=== PATIENT | male | born 1955 | race Caucasian/White ===

== ENCOUNTER 2017-04-01 05:49 | Inpatient (IN) | payer OTHER ==
--- NOTE | ~2017-04-01 | DS ---
Unit #: [id number] #: [id number] Patient: WILLIAM LYLE [id number] [address] [place], [place] [address] [id number] I MR#: [id number] NAME: WILLIAM LYLE ROOM: 460 Age: 61 Sex: M Admission Date: 04/01/2017 : 1955 Discharge Date: 04/02/2017 Attending Physician: Emerson Monterroso M.D. Primary Care Physician: Jose Perkins M.D. DISCHARGE SUMMARY ADMITTING DIAGNOSIS Right proximal humerus fracture. DISCHARGE DIAGNOSIS Right proximal humerus fracture status post right reverse shoulder arthroplasty. SECONDARY DIAGNOSIS Seasonal allergies. PROCEDURES PERFORMED On 04/01/2017 the patient underwent a right reverse shoulder arthroplasty for a right proximal humerus fracture. Please see operative report for further details. BRIEF HISTORY Mr. Lyle is a 61-year-old male who was referred to our office for a right proximal humerus fracture. He was seen in our office where we recommended an attempted ORIF versus hemiarthroplasty versus a reverse. The risks, benefits and alternatives were discussed with the patient, and he elected to proceed with surgery. HOSPITAL COURSE The patient was transferred to the orthopedic unit following surgery. Overnight he remained stable. On postop day number 1 the patient's vital signs remained stable. He was awake, alert and oriented x3 and in no acute distress. His incision was clean, dry and intact with no surrounding erythema, warmth or hematoma. He was neurovascularly intact in the median, ulnar and radial nerves. He had normal sensation to light touch in all 5 digits. His Hemovac drain had 70 mL of serosanguineous drainage out overnight. This was discontinued in the room today. His white blood cell count was 9.7, and his hemoglobin was 11.6. His pain is currently controlled with oxycodone. He is wearing SCDs for DVT prophylaxis. He worked with physical therapy this morning and was cleared to discharge home with the assistance of his family. He remained nonweightbearing of the right upper extremity an in his sling. CONDITION AT DISCHARGE Stable. DISPOSITION The patient will be discharged home where he has family to help with postoperative care. Unit #: [id number] #: [id number] Patient: WILLIAM LYLE DISCHARGE MEDICATIONS 1. Cetirizine 10 mg p.o. daily. 2. Multivitamin 1 tab p.o. daily. 3. Saw palmetto 500 mg p.o. daily. 4. Aspirin 81 mg p.o. daily. 5. Percocet 5/325 mg 1-2 tabs p.o. q.4 hours as needed for pain. The patient was given a refill for this in our office on 03/30/2017, to dispense 80 tablets. 6. Osteo Bi-Flex 1 capsule p.o. daily. 7. Omeprazole 20 mg p.o. daily. 8. Calcium and vitamin D3 tab 1 p.o. daily. DISCHARGE FOLLOWUP AND INSTRUCTIONS 1. The patient will follow up with Dr. Monterroso in 2 weeks' time. 2. He will remain nonweightbearing of the right upper extremity and in his sling. He may remove his sling 2 to 3 times per day to perform pendulums, as well as range of motion of the elbow, wrist and hand. 3. He will perform daily dressing changes to the right upper extremity. 4. He is not to get his incision wet. He may shower but must keep an occlusive dressing over the incision site when bathing. Dictated by... Glynn Ash APRN for Mayo Reese/jeremy TD: 04/04/2017 15:32 JOB #: [id number] DISCHARGE SUMMARY Page 1 of 1 X GLYNN ASH APRN X DISCHARGE SUMMARY
--- NOTE | ~2017-04-01 | CR230 ---
[facility] A Service of [facility] RADIOLOGY TEXT RESULTS PATIENT: WILLIAM LI LOCATION: B 460-01 : 59 UNIT #: [id number] AGE: [address]: Emerson Monterroso MD SEX: M ORDER DR: [id number] [id number] [facility]. [place], [place] [address] [id number] MR#: [id number] Acc #: [id number] NAME: WILLIAM LI : 1955 SEX: M STUDY DATE/TIME: 04/01/2017 08:17 UNIT: [facility] ROOM: [facility] STUDY DESCRIPTION: CR Shoulder Min 2 View Rt Attending Physician: Emerson Monterroso M.D. Ordering Physician: Emerson Monterroso M.D. Primary Care Physician: Jose Perkins M.D. MEDICAL IMAGING REPORT This report is preliminary unless electronic signature is present EXAM Right shoulder, intraoperative views; 04/01/2017, 0817 hours. CLINICAL HISTORY Shoulder fracture with shoulder replacement in progress. Fluoroscopy time 40 seconds. Five images obtained. COMPARISON 03/28/2017 FINDINGS Submitted for interpretation are 5 intraoperative views of the right shoulder obtained by Dr. Monterroso. Dose is not recorded on the images. The first 2 images demonstrated a comminuted displaced fracture of the proximal humerus with disruption of the articular surface. The glenoid appears normal. The third, fourth and fifth images demonstrate a total shoulder replacement with screwed ball component at the glenoid and cemented cup component at the humerus with a single proximal cerclage wire. The alignment is anatomic. IMPRESSION Five intraoperative views are obtained after 40 seconds of fluoroscopy time demonstrating right total shoulder replacement. Alignment is anatomic. Dictated by... Gege Sky M.D. THIS IS AN ELECTRONICALLY VERIFIED REPORT Gege Sky M.D. at 04/02/2017 9:34 AM DARWIN/jacquelyn [facility] A Service [facility] RADIOLOGY TEXT RESULTS PATIENT: WILLIAM LI LOCATION: C4 460-01 : 59 UNIT #: [id number] AGE: [address]: Emerson Monterroso MD SEX: M ORDER DR: TD: 04/01/2017 21:19 JOB #: [id number] MEDICAL IMAGING REPORT Page 1 of 1 COPY
--- NOTE | ~2017-04-01 | CR230 ---
[facility] A Service of [facility] RADIOLOGY TEXT RESULTS PATIENT: WILLIAM LI LOCATION: C4B 460-01 : 59 UNIT #: [id number] AGE: [address]: Emerson Monterroso MD SEX: M ORDER DR: [id number] [facility] [address]. [place], [place] [address] [id number] I MR#: [id number] Acc #: [id number] NAME: WILLIAM LI : 1955 SEX: M STUDY DATE/TIME: 04/01/2017 13:20 UNIT: [facility] ROOM: [facility] STUDY DESCRIPTION: CR Shoulder Min 2 View Rt Attending Physician: Emerson Monterroso M.D. Ordering Physician: Emerson Monterroso M.D. Primary Care Physician: Jose Perkins M.D. MEDICAL IMAGING REPORT This report is preliminary unless electronic signature is present EXAM Right shoulder 2 views, 04/01/2017 1320 hours HISTORY Shoulder pain, postop right total shoulder replacement. FINDINGS Grashey view and scapula Y-view demonstrate patient is postop total shoulder replacement with a screwed-ball component at the glenoid and a cemented cup component at the humerus. Alignment is anatomic. A surgical drain is present. IMPRESSION Two postop views confirm postop change of shoulder replacement with a screwed-ball component at the glenoid and a cemented component at the humerus. Alignment is anatomic. A surgical drain is present. Dictated by... Gege Sky M.D. THIS IS AN ELECTRONICALLY VERIFIED REPORT Gege Sky M.D. at 04/01/2017 9:03 PM DARWIN/shashank TD: 04/01/2017 20:28 JOB #: [id number] MEDICAL IMAGING REPORT Page 1 of 1 COPY
--- NOTE | ~2017-04-01 | OR ---
Unit #: [id number] #: [id number] Patient: WILLIAM LYLE [id number] [address] [place], [place] [address] [id number] I MR#: [id number] NAME: WILLIAM LYLE ROOM: [facility] Date of Procedure: 04/01/2017 Admission Date: 04/01/2017 Surgeon: Emerson Monterroso M.D. : 1955 Attending Physician: Emerson Monterroso M.D. Primary Care Physician: Jose Perkins M.D. OPERATIVE REPORT PREOPERATIVE DIAGNOSIS Right comminuted four-part proximal humerus fracture. POSTOPERATIVE DIAGNOSIS Right comminuted four-part proximal humerus fracture. PROCEDURE PERFORMED Right reverse shoulder arthroplasty. IMPLANTS 1. DJO Surgical size 8 AltiVate stem with a 32, neutral humeral socket liner. 2. DJO Surgical P2 baseplate with a 32, neutral glenosphere. 3. Synthes 1.0 mm cable x1. PUBLIC HEALTH DIRECTOR Yuniel Turcios, PGY-2. ANESTHESIA General with interscalene nerve block. ESTIMATED BLOOD LOSS 250 mL. COMPLICATIONS None apparent. DRAINS Medium Hemovac x1. INDICATIONS FOR PROCEDURE Mr. Lyle is a 61-year-old gentleman with a complex comminuted right proximal humerus fracture. This is a four-part fracture with at least a small amount of the articular segment involvement. We discussed attempted ORIF versus ishan versus reverse. We reviewed surgical options. At this point, we elected to proceed with surgical intervention as noted above. DESCRIPTION OF PROCEDURE The patient was identified in the preoperative holding area. The operative site was marked. Preoperative antibiotics were administered. A regional block was performed. The patient was brought to the operating room and placed supine on the operating table. A general anesthetic was Unit #: [id number] #: [id number] Patient: WILLIAM LYLE induced. The patient was positioned in the beach-chair table in a semirecumbent position. The right arm was prepped and draped in sterile fashion. A standard deltopectoral approach was performed. The dissection was carried down to the cephalic vein, which was retracted laterally with the deltoid. The subdeltoid space was developed as were the medial soft tissue planes. Dissection was initially carried out towards the greater tuberosity fragment. Once we developed the subdeltoid space, the shaft was anterior to the head. Actually the head segment was actually visible somewhat on the posterior lateral aspect of the humerus. This was interposed between the shaft and greater tuberosity fragments. A Kowalski elevator was used to derotate in line with the head back into more anatomic position and we were able to retrieve the tuberosity fractures. These were retracted substantially around the posterior aspect of the glenoid. These were initially grasped with in generally the Cobra clamp and then placed a FiberWire suture in the soft tissue about the tendon and bone interface. With his traction suture, we were then able to mobilize the fragments further and placed more traction stitches at the tendon and bone interface. The tuberosity fragment was extremely large from superior to inferior and was in a soft tissue sleeve, which consisted of 3 to 4 comminuted fragments of greater tuberosity. Once we had tagging sutures in the greater tuberosity, we turned to the lesser tuberosity. The conjoint tendon was identified and the subscapularis noted deep to this. A tagging suture was placed here as well. Once we had tagging sutures in the tuberosities, we then attempted to obtain a reduction of the fracture. This was complicated by the metaphyseal comminution along the medial calcar. Due to this, we were unable to really support the head segment. We were able to improve its overall positioning, but we were never able to reduce it anatomically. K-wires were placed in the head to try to derotate this and the Kowalski elevator was used through the fracture site to manipulate this as well. We continued to see a "double bubble" sign on the C-arm images consistent with incongruity of the articular segment. After significant effort of obtaining an adequate reduction, we elected to proceed to an arthroplasty. Given the amount of comminution, it was felt that hemiarthroplasty was going to be very unpredictable and reverse was going to give him a much more reliable result. The biceps was secured to the superior border of the pectoralis major with a biceps tenodesis. The biceps was then released further up into the rotator interval. Soft tissue releases were continued releasing the coracohumeral ligament further mobilizing lesser tuberosity segment. We had better access to the glenohumeral joint space and then retrieved the humeral head. There was again one large fragment. However, once this fragment was removed, there were multiple other comminuted articular fragments within the confines of the glenohumeral joint. These were palpable and removed with rongeur and Krystin. The remaining cartilage on the greater tuberosity fragment was also removed. The metaphyseal bone medially was palpable. There were actually 2 separate fragments along the medial cortex. We released the soft tissue along the medial aspect of the humerus and exposed these fragments. These were in close proximity to the axillary nerve. This was identified by digital palpation and confirmed with TUG test. One of these fragments was removed. The second one was preserved for later incorporation in cerclage wire to help support the humeral stem. We then prepared the humerus according to the standard technique and sized up to a size 8 stem with a size 10 cement restrictor. The humerus was then subluxed posteriorly and attention turned to glenoid exposure. The labrum was excised circumferentially around the glenoid. Unit #: [id number] #: [id number] Patient: WILLIAM LYLE We had an easy end-on exposure of the glenoid given the access into the humeral head. We then drilled the centering hole and inserted the reaming tap and reaming to down to the desired point and inserted the real baseplate. This achieved excellent purchase in the scapula. We then placed 4 peripheral locking screws into the baseplate followed by the real 32, neutral glenosphere. Attention was turned back to the humerus. There was again several fragments of comminuted bone, which were removed. We placed the medial calcar fragment. We were able to preserve at its desired location and placed provisional cerclage wire here. We then placed our size 10 cement restrictor and then cemented the humerus with a hybrid cement bone graft technique with cementing distally and bone graft proximally. The stem was then inserted and held in desired version while the cement was allowed to cure. We then trialed and selected a 32, neutral humeral socket liner. This was impacted in place. The shoulder was then reduced. The greater tuberosity was tagged with 2 FiberWire sutures as well as the cerclage suture through the stem. The lesser tuberosity was tagged with a FiberTape and a FiberTape through the humeral stem. Bone graft was packed around the stem proximally and the sutures then passed through suture holes in the stem. The greater tuberosity was secured to the humeral stem followed by the lesser tuberosity. We then tied tuberosity to tuberosity and lastly tied the cerclage and FiberTape. This gave us a stable repair construct with both tuberosities reduced back to the stem and a stable shoulder. The wound was then irrigated with pulsatile lavage. A subdeltoid drain was placed. The wound was then closed with 0 Vicryl, 2-0 Vicryl, and 4-0 Monocryl in the skin. Steri-Strips and sterile dressings were applied. The patient was placed in a shoulder immobilizer. DISPOSITION Stable to the recovery room. Dictated by... Mayo Reese/twila TD: 04/02/2017 05:23 JOB #: [id number] OPERATIVE REPORT Page 1 of 1 X Emerson Monterroso MD X PROCEDURE OPERATIVE NOTE
[~2017-04-01 05:49] MED LIST: ALL DAY ALLERGY10 M3 PO; ASPIRIN81 M2 PO; CALCIUM 500 +1 EAC6 PO; FISH OIL 1,0001 EACH PO; MULTI VITAMIN1 EACH PO; OMEPRAZOLE20 M2 PO; OSTEO BI-FLEX1 EAC3 PO; PERCOCET5/325 PO; SAW PALMETTO500 MG PO
[2017-04-02 03:36] LABS: HEMOGLOBIN 11.6 gm/dL (13.0-16.0); MEAN CELL VOLUME 90.3 FL (83-96); MEAN CORPUSCULAR HEMOGLOBIN 29.8 PG (28-34); MEAN PLATELET VOLUME 8.7 FL (6.5-11.5); RED BLOOD COUNT 3.88 X10e (3.90-5.60); WHITE BLOOD COUNT 9.7 X10e3 (4.0-10.5)
== END 2017-04-02 16:30 | disposition home or self-care (01) | DRG 483 ==
LOC: CSUR 05:49 → CPACUOF 06:10 → C4B 06:10 → CSUR 07:30 → C4B 08:27 → CSUR 08:27 → CPACUOF 08:27 → CSUR 10:00 → CPACUOF 14:03 → C4B 14:03
PROVIDERS: Orthopaedic Surgery
PROC: 0RRJ00Z Replacement of Right Shoulder Joint with Reverse Ball and Socket Synthetic Substitute, Open Approach (ICD-10-PCS; 2017-04-01)
PROC: 0PHC04Z Insertion of Internal Fixation Device into Right Humeral Head, Open Approach (ICD-10-PCS; principal; 2017-04-01 07:30)
DX: S42.201A Unspecified fracture of upper end of right humerus, initial encounter for closed fracture (principal); J30.2 Other seasonal allergic rhinitis; W11.XXXA Fall on and from ladder, initial encounter; K21.9 Gastro-esophageal reflux disease without esophagitis
CPT/HCPCS: 73030; 76001; 85027; 94761; 97110; 97116; 97161; C1713; C1776; G8978-GP; G8979-GP; G8980-GP; J0330; J0690; J0735; J2250; J2270; J2405; J2710; J2795; J3010